=== PATIENT | male | born 1985 | race Asian ===

== ENCOUNTER 2019-09-18 03:44 | Inpatient (IN) | payer OTHER ==
[2019-09-18] VITALS (16 sets, daily range): BP systolic 53–126; BP diastolic 28–96; TEMP 92–98.3; Ht 190.5 cm; Wt 74.8 kg
[~2019-09-18] VITALS: Ht 190.5 cm; Wt 74.8 kg
[2019-09-18 04:23] LABS: PLATELET COUNT 250 K/uL (142-355)
[2019-09-18 04:31] LABS: POTASSIUM 4.8 mmol/L (3.6-5.2)
[2019-09-18 04:59] LABS: PARTIAL THROMBOPLASTIN TIME 20.5 SECONDS (24.5-33.6)
== END 2019-09-18 17:25 | disposition short-term general hospital (02) | DRG 291 ==
LOC: ED 03:44 → MED/SURG 06:05 → ICU 07:55
PROVIDERS: Student in an Organized Health Care Education/Training Program; ADMIT Internal Medicine
DX: R57.0 Cardiogenic shock (principal); J81.0 Acute pulmonary edema; R04.2 Hemoptysis; I51.7 Cardiomegaly; I44.7 Left bundle-branch block, unspecified; R06.09 Other forms of dyspnea; I51.89 Other ill-defined heart diseases
CPT/HCPCS: 36415; 36600; 80048; 80076; 80307; 81000; 82550; 82553; 82805; 83735; 83880; 84484; 85027; 85610; 85730; 87040; 87502; 93005; 94664; 96361; 96365; 96375; 99284; J0456; J0696; J1265; J1650; J1940; J2405; J2930; J3370; Q9963

== ENCOUNTER 2019-09-18 17:30 | Outpatient (CLI) | payer OTHER | END 2019-09-18 19:00 | disposition short-term general hospital (02) | LOC: AMB 17:30 | DX: R06.09 Other forms of dyspnea (principal) | CPT/HCPCS: A0425; A0427 ==